=== PATIENT | male | born 1945 | race Caucasian/White ===

== ENCOUNTER 2018-04-20 07:17 | Day surgery (SDC) | payer MEDICARE, BC ==
[~2018-04-20 07:17] MED LIST: Lactated Ringers 1,000 ML IV SCH; Sodium Chloride 0.9% 10 ML Syringe FLUSH PRN
[2018-04-20] MEDS ORDERED: Propofol 200 MG/20 ML SDV IV ONE (07:18)
[2018-04-20] MEDS ORDERED: Midazolam 1 MG/ML 2 ML SDV IV ONE (07:18)
[2018-04-20] MEDS ORDERED: Simethicone Drops 40 MG/0.6 ML 30 ML Bottle ONE (09:12)
--- NOTE | 2018-04-20 09:37 | PCM.OPNOTE ---
- General Post-Op/Procedure Note Date of Surgery/Procedure: 04/20/18 Operative Procedure(s): c scope with bx Findings: ascending, transverse, descending and rectal polyp Pre Op Diagnosis: personal hx of colon polyps Post-Op Diagnosis: ascending, transverse, descending and rectal polyp Anesthesia Technique: MAC Primary Surgeon: Douglas King Anesthesia Provider: Barbara Wiggins Pathology: ascending, transverse, descending and rectal polyp Complications: None Condition: Good Free Text/Narrative:: see dictation
--- NOTE | 2018-04-20 09:57 | OR ---
DATE OF OPERATION: 04/20/2018 SURGEON: Douglas King MD PROCEDURE PERFORMED: Colonoscopy with cold forceps biopsy. PREOPERATIVE DIAGNOSIS: Personal history of colon polyps. POSTOPERATIVE DIAGNOSIS: Colon polyps x4, ascending, transverse, descending, and rectum. INDICATIONS FOR PROCEDURE: This is a 72-year-old white male presents for followup colonoscopy. He has a personal history of adenomatous colon polyps. DESCRIPTION OF OPERATION: After an excellent IV sedation was administered, digital rectal exam was performed. No marked abnormality was noted. Flexible colonoscope was inserted and advanced to the cecum. The prep was excellent. The following findings were noted. A small polyp in the ascending colon, biopsied with cold biopsy forceps and sent for permanent. Occasional diverticula noted. Transverse colon, small colon polyp biopsied with cold biopsy forceps and sent for permanent. Descending colon, a small polyp biopsied with cold biopsy forceps and sent for permanent. Sigmoid scattered diverticula, rectum small polyp biopsied with cold biopsy forceps and sent for permanent. Colon was deflated as the scope was removed. The patient tolerated the procedure well and was taken to recovery in good condition. Results by letter. /[id number] /MODL
== END 2018-04-20 10:45 | disposition home or self-care (01) ==
LOC: FB.SDS 07:17
PROVIDERS: ATTEND Surgery
DX: Z12.11 Encounter for screening for malignant neoplasm of colon (principal); D12.2 Benign neoplasm of ascending colon; D12.3 Benign neoplasm of transverse colon; K63.5 Polyp of colon; K62.1 Rectal polyp; K57.30 Diverticulosis of large intestine without perforation or abscess without bleeding; I10 Essential (primary) hypertension; E11.9 Type 2 diabetes mellitus without complications; E78.00 Pure hypercholesterolemia, unspecified; Z86.010 Personal history of colon polyps; Z87.891 Personal history of nicotine dependence; Z79.84 Long term (current) use of oral hypoglycemic drugs; Z79.899 Other long term (current) drug therapy
CPT/HCPCS: 00811; 45380; 82962; A9270; J2250; J2704; J7120; 88305

== ENCOUNTER 2024-03-09 07:04 | Day surgery (SDC) | payer MEDICARE, OTHER ==
[~2024-03-09 07:04] MED LIST changes: -Lactated Ringers 1,000 ML IV SCH
[2024-03-09] MEDS ORDERED: Propofol 200 MG/20 ML SDV IV ONE (07:05)
[2024-03-09] MEDS ORDERED: Ketamine 500 mg/10 ML MDV IV ONE (07:05)
[2024-03-09] MEDS ORDERED: Midazolam 1 MG/ML 2 ML SDV IV ONE (07:05)
[2024-03-09] MEDS ORDERED: Phenylephrine 0.5% Nasal Spray 15 ML Bot NAS ONE (07:05)
[2024-03-09] MEDS ORDERED: Glycopyrrolate 0.2 MG/ML 5 ML MDV IV ONE (07:05)
[2024-03-09] MEDS: Lactated Ringers 1,000 ML IV SCH (08:36)
[2024-03-09] MEDS: Simethicone Drops 40 MG/0.6 ML 30 ML Bottle ONE (09:19)
== END 2024-03-09 11:00 | disposition home or self-care (01) ==
LOC: FB.SDS 07:04
PROVIDERS: ATTEND Surgery
DX: Z12.11 Encounter for screening for malignant neoplasm of colon (principal); D12.6 Benign neoplasm of colon, unspecified; K63.89 Other specified diseases of intestine; K63.5 Polyp of colon; K57.30 Diverticulosis of large intestine without perforation or abscess without bleeding; E11.9 Type 2 diabetes mellitus without complications; E66.01 Morbid (severe) obesity due to excess calories; I10 Essential (primary) hypertension; Z87.891 Personal history of nicotine dependence; Z68.41 Body mass index [BMI] 40.0-44.9, adult; Z79.899 Other long term (current) drug therapy; Z79.84 Long term (current) use of oral hypoglycemic drugs; Z79.82 Long term (current) use of aspirin; Z86.0101 Personal history of adenomatous and serrated colon polyps
CPT/HCPCS: 00811; 82947; 88305; 99100; A9270-GY; J1596; J2250; J2704; J3490; J7120